=== PATIENT | female | born 1975 | race Caucasian/White ===

== ENCOUNTER → 2016-09-07 17:18 | Outpatient (CLI) | payer MEDICARE ==
[2013-10-18 06:01] VITALS: BMI 18.0
[~2016-09-07 17:18] MED LIST: ATIVAN1 MG PO; BENTYL10 MG PO; DESERYL100 MG PO; FLOVENT DI50 MCG/DIS INH; FOLIC ACID1 MG PO; INDERAL10 MG PO; LITHIUM CARBON300 MG PO; MULTIPLE VITAMI1 TA1 PO; NORVASC10 MG PO; PATADAY2.5 ML EACH EYE; PERCOCET 5-3251 TAB PO; POTASSIUM CHLOR8 ME1 PO; PREDNISONE5 MG PO; PRILOSEC20 MG PO; PROAIR HFA8.5 GM INH; PROZAC20 MG PO; SINGULAIR10 MG PO; SOMA350 MG PO
== END | disposition home or self-care (01) ==
LOC: D.MAMMO 14:00
DX: N63 Unspecified lump in breast (principal)

== ENCOUNTER → 2018-07-14 16:33 | Outpatient (CLI) | payer MEDICARE ==
[2013-10-18 06:01] VITALS: BMI 18.0
== END | disposition home or self-care (01) ==
LOC: D.MAMMO 13:00
DX: Z12.31 Encounter for screening mammogram for malignant neoplasm of breast (principal)

== ENCOUNTER 2020-08-21 13:56 | Outpatient (CLI) | payer MEDICARE ==
[2013-10-18 06:01] VITALS: BMI 18.0
== END 2020-08-21 23:59 | disposition home or self-care (01) ==
LOC: D.MAMMO 13:56
DX: Z12.31 Encounter for screening mammogram for malignant neoplasm of breast (principal)